=== PATIENT | male | born 1970 | race Two or more races ===

== ENCOUNTER 2017-02-05 15:57 | Emergency (ER) | payer OTHER ==
[~2017-02-05] VITALS: Ht 167.6 cm; Wt 111.6 kg
[2017-02-05 16:21] VITALS: BP 141/98
== END 2017-02-05 17:24 | disposition home or self-care (01) ==
LOC: ER 16:01 → EDBD 16:01 → ER 17:24
DX: T26.12XA Burn of cornea and conjunctival sac, left eye, initial encounter (principal); T26.11XA Burn of cornea and conjunctival sac, right eye, initial encounter; X10.2XXA Contact with fats and cooking oils, initial encounter; Y93.G9 Activity, other involving cooking and grilling; Y99.8 Other external cause status; Y92.511 Restaurant or cafe as the place of occurrence of the external cause; Z88.0 Allergy status to penicillin